=== PATIENT | male | born 1950 | race Caucasian/White ===

== ENCOUNTER → 2020-05-17 | Outpatient (CLI) | payer OTHER ==
[~2020-05-17] MED LIST: ARTIFICIAL TEAR15 ML EYEBOTH; CHLORTHALIDONE50 MG PO; ECOTRIN81 MG PO; KLONOPIN1 MG PO; LOPRESSOR 25 MG25 MG PO; NORCO 10-325 T1 EACH PO; PRAVACHOL40 MG PO; ZANAFLEX4 MG PO; ZESTRIL40 MG PO
== END ==
LOC: KOH-I 05-09 11:30
DX: R22.1 Localized swelling, mass and lump, neck (principal)
CPT/HCPCS: 76536

== ENCOUNTER → 2020-10-02 | Outpatient (CLI) | payer OTHER | LOC: EXRD 12:56 | DX: N40.0 Benign prostatic hyperplasia without lower urinary tract symptoms (principal) | CPT/HCPCS: 76775 ==

== ENCOUNTER → 2021-01-01 | Outpatient (CLI) | payer OTHER | LOC: KOH-I 10:00 | DX: F17.210 Nicotine dependence, cigarettes, uncomplicated (principal); R91.8 Other nonspecific abnormal finding of lung field | CPT/HCPCS: 71271 ==

== ENCOUNTER → 2021-04-16 | Outpatient (CLI) | payer OTHER | LOC: HEART 5 12:04 | DX: J44.9 Chronic obstructive pulmonary disease, unspecified (principal); R91.8 Other nonspecific abnormal finding of lung field; F41.9 Anxiety disorder, unspecified; M19.90 Unspecified osteoarthritis, unspecified site | CPT/HCPCS: 94060; 94729 ==

== ENCOUNTER → 2021-08-19 | Outpatient (CLI) | payer OTHER | LOC: KOH-I 11:15 | DX: M54.50 Low back pain, unspecified (principal); M51.36 Other intervertebral disc degeneration, lumbar region; M48.061 Spinal stenosis, lumbar region without neurogenic claudication | CPT/HCPCS: 72148 ==